=== PATIENT | female | born 1975 | race Caucasian/White ===

== ENCOUNTER 2016-11-29 10:39 | Emergency (ER) | payer SELFPAY ==
[2016-11-29 11:02] VITALS: BMI 38.9
--- NOTE | 2016-11-29 11:23 | EDPRACDOC ---
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 PT HER THROAT HURTS MORE THAN ANYTHING. Sore Throat Symptoms: Reports: Pain White Spots Location: Reports: Pharynx (TONSILS) Recent: Reports: None Relevant History of: Reports: None Pain Severity: Reports: Mild Urinary Output: Normal Oral Intake: Normal Associated Signs and Symptoms: Reports: Fever, Chills, Cough, Nasal Symptoms, Other (BODYACHES) - Treatment Prior to ED Arrival Reported Medications/Treatment TALENT ACQUISITION ADMINISTRATOR Treated With Medication TALENT ACQUISITION ADMINISTRATOR YES Medications TALENT ACQUISITION ADMINISTRATOR (Medication/ ibuprofen last night Dose/Time) ED Past Medical History - History Reviewed Yes Nurses notes reviewed and agree except as marked Travel Outside of [place] in the Last 3 Months?: No - Patient Medical History Psychological History: Denies: Depression Surgical History: Reports: Other (BTL) - Social Medical History Smoking Status: Heavy tobacco smoker (5 or more cigarettes/day or daily pipe/ cigar) ETOH: None Substance Abuse: None Lives With: Other Lives In: Home EDM Review of Systems - Review of Systems ROS Negative Except as Marked: Yes All systems reviewed and were negative except as marked Constitutional: Chills, Fever, Fatigue. negative: Loss of Appetite, Weakness Eyes: No Symptoms Reported. negative: Redness, Blurred Vision, Double Vision, Discharge, Pain, Light Sensitive, Photophobia Ears: No Symptoms Reported. negative: Pain, Hearing Loss, Drainage, Ear Pulling Throat: Pain, Swelling, Erythema Nose: Congestion. negative: Abrasion, Bleeding, Discharge, Deformity, Ecchymosis, Injection, Laceration, Swelling, Tender Mouth: No Symptoms Reported. negative: Pain, Drooling Respiratory: Cough. negative: Barky Cough, Brassy Cough, Hemoptysis, Shortness of Breath, Wheezing Cardiovascular: No Symptoms Reported. negative: Chest Pain, Palpitations, Syncope, Edema, Orthopnea, PND, Skin Mottling, Cyanosis Gastrointestinal: No Symptoms Reported. negative: Pain, Constipation, Nausea, Vomiting, Diarrhea, Melena, Formula Intolerance Genitourinary: No Symptoms Reported. negative: Dysuria, Hematuria, Frequency, Discharge, Bleeding, Testicular Pain, Neurological: No Symptoms Reported. negative: Headache, Dizziness, Seizure, Numbness, Weakness, Speech Difficulty, Gait Difficulty Musculoskeletal: No Symptoms Reported. negative: Neck, Chestwall, Ribs, Back, Shoulder, Arm, Elbow, Forearm, Wrist, Hand, Pelvis, Hip, Femur, Knee, Leg, Ankle , Foot Integumentary: No Symptoms Reported. negative: Itching, Rash, Bruising, Wound Allergic/Immunologic: No Symptoms Reported. negative: Hives, Itching Hematologic: No Symptoms Reported. negative: Lymphadenopathy, Easy Bruising, Easy Bleeding Endocrine: No Symptoms Reported. negative: Weight Gain, Weight Loss Psychiatric: No Symptoms Reported. negative: Anxiety, Depression, Hallucinations, Insomnia, Suicidal - Physical Exam Constitutional: No apparent distress, Alert (Awake) Oriented to: Time, Person, Place Last recorded Vital Signs: Last Vital Signs Temp 98.7 F 11/29/16 10:59 Pulse 118 11/29/16 10:59 Resp 20 11/29/16 10:59 BP 176/101 H 11/29/16 10:59 Pulse Ox 98 11/29/16 10:59 Oxygen Pulse Oxygen Saturation 98 O2 Device Room Air Oxygen Flow Rate Fraction of Inspired Oxygen ( FIO2) - HEENT Head: Normal ( normocephalic) Eye Exam: Normal (PERRL, EOMI, Sclera white) Oropharynx: Red, Tonsillar Hypertrophy, [place] Tympanic Membrane: Normal ENT EAC: Normal TMJ: Normal Nose: No Symptoms Reported (septum midline) Neck: Lymphadenopathy - Respiratory/Cardiovascular Respiratory: Diminished Cardiovascular: Normal (RRR without murmur, gallop or rub) - GI Auscultation: Normal (NABS) Palpation: Normal (Soft,No rebound or guarding, non distended) Tenderness: Non tender Christina's Sign: Negative - Musculoskeletal Back: Normal (Non-Tender) Extremities: Normal (Normal tone, Pulses 2+ No cyanosis or edema, FROM) - Integumentary Skin: Normal, Warm, Dry Lymphatics: Normal (no adenopathy) - Neurologic Memory Impaired: Normal Motor Function: Normal (Normal tone, Pulses 2+ No cyanosis or edema, FROM) Cranial Nerve: Normal (CN II-X11 intact sensation, strength 5/5) Cerebellar: Normal Mood Description: Normal Perception: Normal - Differential Diagnosis Other (INFLUENZA), Pharyngitis Streptococcal, Pharyngitis Viral, URI - EKG EKG #1 EKG Time: 11:15 -: Yes EKG interpreted by me Rate: bpm: 108 Temple: Normal Rhythm: ST Block: None Hypertrophy: None ST: Normal - Additional Information POSITIVE STREP, WILL GIVE BICILLIN LA 1.2MIL UNITS IM. Decision Time to Discharge: 12:12 - Departure Disposition: Home Final Diagnosis: Strep pharyngitis Instructions: Strep Throat (ED) Education/Counseling Given To: Patient Education/Counseling Given Regarding: Diagnosis, Treatment, Prognosis, Follow Up Referrals: None,No Provider [Primary Care Provider] - One Week Prescriptions: Hydrocodone Bit/Acetaminophen [Hydrocodon-Acetaminophen 5-325] 1 tab PO Q4H PRN #6 tab PRN Reason: Pain Additional Instructions: MOTRIN FOR FEVER AND BODY ACHES. RETURN FOR WORSE OR DIFFERENT SYMPTOMS.
--- NOTE | 2016-11-29 12:10 | DIRPT ---
CLINICAL DATA: Cough, sore throat and body aches for 2 weeks, worsened symptoms yesterday, generalized weakness EXAM: CHEST 2 VIEW COMPARISON: None FINDINGS: Normal heart size, mediastinal contours, and pulmonary vascularity. Lungs clear. No pneumothorax. Bones unremarkable. IMPRESSION: Normal exam. Electronically Signed By: Remy Mccabe M.D. On: 11/29/2016 12:08
[2016-11-29] MEDS ORDERED: PENICILLIN G BENZATHINE 1.2 MIL UNITS TUBEX IM ONE (12:11)
[2016-11-29 13:02] VITALS: BP 174/84; PULSE 96; TEMP 99.4
== END 2016-11-29 13:07 | disposition home or self-care (01) ==
LOC: ED 10:39 → EDMC 13:07
DX: J02.0 Streptococcal pharyngitis (principal)
CPT/HCPCS: 71020; 87880; 93005; 96372; 99283; J0561